=== PATIENT | female | born 1990 | race Asian ===

== ENCOUNTER 2018-05-02 16:35 | Emergency (ER) | payer OTHER ==
--- NOTE | 2018-05-02 16:51 | EDPHY ---
H & P Stated Complaint: RLQ pain Time Seen by Provider: 05/02/18 16:50 HPI/ROS: CHIEF COMPLAINT: Right lower quadrant abdominal pain HISTORY OF PRESENT ILLNESS: 27-year-old female via private vehicle , visiting from [place] arrived last evening, complaining of right lower quadrant abdominal pain since last evening described as a sharp, piercing pain. 3 weeks ago while in [place] she had emergency contraception and IUD placement at that time and has noticed mild, consistent right lower quadrant pain ever since. She has a history of IBS and possibly IBD. No nausea or vomiting. No urinary abnormality. No back or flank pain. No chest pain. No dyspnea. No peripheral edema. Last oral intake was at 4:00 p.m. Today REVIEW OF SYSTEMS: A ten point review of systems was performed and is negative with the exception of the items mentioned in the HPI PAST MEDICAL & SURGICAL HISTORY: IUD in place SOCIAL HISTORY:Nonsmoker. Single. PHYSICAL EXAM (Prior to examination, patient consented to physical exam, hands were washed and my usual and customary physical exam procedures followed) 1) GENERAL: Well-developed, well-nourished, alert and oriented. Appears to be in no acute distress. Observed ambulating with a stable steady gait appears to be in no acute discomfort 2) HEAD: Normocephalic, atraumatic 3) HEENT: Pupils equal, round, reactive to light bilaterally. Sclera anicteric. [Nasopharynx, oropharynx, clear, no lesions. And moist mucous membranes 4) NECK: Full range of motion, no meningeal signs. 5) LUNGS: Clear auscultation bilaterally, no wheezes, no rhonchi, no retractions. 6) HEART: Regular rate and rhythm, no murmur, no heave, no gallop. 7) ABDOMEN: No guarding, tender to palpation right lower quadrant, negative Vyas's, negative Rovsing's, negative peritoneal sign, 8) MUSCULOSKELETAL: Moving all extremities, no focal areas of tenderness, no obvious trauma. No peripheral edema or discoloration. 9) BACK: No CVA tenderness, no midline vertebral tenderness, no fluctuance, no step-off, no obvious trauma, no visual or palpable abnormality. 10) SKIN: No rash, no petechiae. 11) Psychiatric: Patient is oriented X 3, there is no agitation. DIFFERENTIAL DIAGNOSIS: My differential diagnosis includes, but is not limited to, acute appendicitis, acute cholecystitis, bowel obstruction, acute pancreatitis, ovarian torsion, ectopic , gastritis and urinary tract infection. The patient understands that this diagnosis is provisional and can never be 100% accurate. This is a partial list of diagnoses considered. These considerations are based on history, physical exam, past history and reassessment. - Personal History LMP (Females 10-55): IUD In Place Current Tetanus/Diphtheria Vaccine: Yes Current Tetanus Diphtheria and Acellular Pertussis (TDAP): Yes - Medical/Surgical History Hx Asthma: No Hx Chronic Respiratory Disease: No Hx Diabetes: No Hx Cardiac Disease: No Hx Renal Disease: No Hx Cirrhosis: No Hx Alcoholism: No Hx HIV/AIDS: No Hx Splenectomy or Spleen Trauma: No Other PMH: IBS, sleep disorder, - Social History Smoking Status: Never smoked Constitutional: Initial Vital Signs Temperature (C) 36.6 C 05/02/18 16:44 Heart Rate 81 05/02/18 16:44 Respiratory Rate 16 05/02/18 16:44 Blood Pressure 104/74 05/02/18 16:44 O2 Sat (%) 96 05/02/18 16:44 O2 Delivery Mode Room Air Allergies/Adverse Reactions: No Known Allergies Allergy (Unverified 05/02/18 16:40) Home Medications: Medication Instructions Recorded Accutane 05/02/18 Clonazepam 05/02/18 Trospium Chloride 05/02/18 Medical Decision Making - Diagnostics Imaging Results: Imaging Impressions Abdomen Ultrasound 05/02/18 17:09 Impression: 1. Appropriately-positioned intrauterine device. 2. There is a 1.3 cm right ovarian hemorrhagic follicle, and there is a 2.0 cm involuting left ovarian hemorrhagic follicular cyst. 3. There is no evidence of torsion or free fluid. LIMITED ABDOMINAL (APPENDICEAL) ULTRASOUND Technique: The right lower quadrant was evaluated with a high-resolution linear transducer, utilizing graded compression and color Doppler. Findings: The cecum is identified, and is air-filled. The appendix is not identified, however there is no rebound tenderness, point tenderness, free fluid , or right lower quadrant mesenteric adenitis. Impression: Nondiagnostic assessment of the appendix. If there is further clinical concern regarding the patient's right lower quadrant pain, contrast-enhanced CT imaging could be considered. Findings were discussed with Ana Maria Garibay PA-C at 18:33, on 05/02/2018. Pelvic/Renal Ultrasound 05/02/18 17:09 Impression: 1. Appropriately-positioned intrauterine device. 2. There is a 1.3 cm right ovarian hemorrhagic follicle, and there is a 2.0 cm involuting left ovarian hemorrhagic follicular cyst. 3. There is no evidence of torsion or free fluid. LIMITED ABDOMINAL (APPENDICEAL) ULTRASOUND Technique: The right lower quadrant was evaluated with a high-resolution linear transducer, utilizing graded compression and color Doppler. Findings: The cecum is identified, and is air-filled. The appendix is not identified, however there is no rebound tenderness, point tenderness, free fluid , or right lower quadrant mesenteric adenitis. Impression: Nondiagnostic assessment of the appendix. If there is further clinical concern regarding the patient's right lower quadrant pain, contrast-enhanced CT imaging could be considered. Findings were discussed with Ana Maria Garibay PA-C at 18:33, on 05/02/2018. Abdomen CT 05/02/18 18:45 Impression: 1. Normal appearance of the appendix. 2. Moderate constipation. 3. Appropriately-positioned intrauterine device. 4. There is a 2 cm involuting left ovarian hemorrhagic cyst (seen in greater detail on the earlier pelvic ultrasound). Findings were discussed with Ana Maria Garibay PA-C at 19:42, on 05/02/2018. Images reviewed by myself ED Course/Re-evaluation: 5:05 p.m.: Will obtain diagnostic studies including blood urine pelvic ultrasound and transabdominal ultrasound for evaluation of possible appendicitis. I saw this patient independently based on established practice protocols. Care of patient under supervision of secondary supervising physician Dr Ortiz . 6:44 p.m.: Re-evaluation discussed her imaging results showing a nonvisualized appendix. Patient still complaining of right lower quadrant pain. Expressed options including repeat evaluation [address] now. Given that the patient is visiting from [place] and I recommend CT imaging now. Indications risks benefits discussed she is agreeable. - Data Points Laboratory Results: Laboratory Results 05/02/18 17:13 05/02/18 17:13 05/02/18 05/02/18 05/02/18 17:13 17:13 17:13 WBC 11.96 10^3/uL H 10^3/uL (3.80-9.50) RBC 3.76 10^6/uL L 10^6/uL (4.18-5.33) Hgb 11.5 g/dL L g/dL (12.6-16.3) Hct 34.6 % L % (38.0-47.0) MCV 92.0 fL fL (81.5-99.8) MCH 30.6 pg pg (27.9-34.1) MCHC 33.2 g/dL g/dL (32.4-36.7) RDW 13.7 % % (11.5-15.2) Plt Count 294 10^3/uL 10^3/uL (150-400) MPV 10.0 fL fL (8.7-11.7) Neut % (Auto) 43.0 % % (39.3-74.2) Lymph % (Auto) 48.4 % H % (15.0-45.0) [place] % (Auto) 7.1 % % (4.5-13.0) Eos % (Auto) 1.0 % % (0.6-7.6) Baso % (Auto) 0.3 % % (0.3-1.7) Nucleat RBC Rel Count 0.0 % % (0.0-0.2) Absolute Neuts (auto) 5.14 10^3/uL 10^3/uL (1.70-6.50) Absolute Lymphs (auto) 5.79 10^3/uL H 10^3/uL (1.00-3.00) Absolute Monos (auto) 0.85 10^3/uL H 10^3/uL (0.30-0.80) Absolute Eos (auto) 0.12 10^3/uL 10^3/uL (0.03-0.40) Absolute Basos (auto) 0.04 10^3/uL 10^3/uL (0.02-0.10) Absolute Nucleated RBC 0.00 10^3/uL 10^3/uL (0-0.01) Immature Gran % 0.2 % % (0.0-1.1) Immature Gran # 0.02 10^3/uL 10^3/uL (0.00-0.10) RBC/WBC/PLT Morphology TNP Platelet Estimate TNP Sodium 137 mEq/L mEq/L (135-145) Potassium 3.9 mEq/L mEq/L (3.3-5.0) Chloride 108 mEq/L mEq/L (97-110) Carbon Dioxide 24 mEq/l mEq/l (22-31) Anion Gap 5 mEq/L L mEq/L (8-16) BUN 15 mg/dL mg/dL (7-23) Creatinine 0.5 mg/dL L mg/dL (0.6-1.0) Estimated GFR > 60 Glucose 85 mg/dL mg/dL (70-100) Calcium 9.3 mg/dL mg/dL (8.5-10.4) Beta HCG, Qual NEGATIVE Urine Color Urine Appearance Urine pH Ur Specific [place] Urine Protein Urine Ketones Urine Blood Urine Nitrate Urine Bilirubin Urine Urobilinogen Ur Leukocyte Esterase Urine RBC Urine WBC Ur Epithelial Cells Urine Glucose 05/02/18 16:45 WBC RBC Hgb Hct MCV MCH MCHC RDW Plt Count MPV Neut % (Auto) Lymph % (Auto) [place] % (Auto) Eos % (Auto) Baso % (Auto) Nucleat RBC Rel Count Absolute Neuts (auto) Absolute Lymphs (auto) Absolute Monos (auto) Absolute Eos (auto) Absolute Basos (auto) Absolute Nucleated RBC Immature Gran % Immature Gran # RBC/WBC/PLT Morphology Platelet Estimate Sodium Potassium Chloride Carbon Dioxide Anion Gap BUN Creatinine Estimated GFR Glucose Calcium Beta HCG, Qual Urine Color YELLOW Urine Appearance CLEAR Urine pH 7.0 (5.0-7.5) Ur Specific Mobile 1.024 (1.002-1.030) Urine Protein NEGATIVE (NEGATIVE) Urine Ketones NEGATIVE (NEGATIVE) Urine Blood NEGATIVE (NEGATIVE) Urine Nitrate NEGATIVE (NEGATIVE) Urine Bilirubin NEGATIVE (NEGATIVE) Urine Urobilinogen NEGATIVE EU EU (0.2-1.0) Ur Leukocyte Esterase NEGATIVE (NEGATIVE) Urine RBC 1-3 /hpf /hpf (0-3) Urine WBC 1-3 /hpf /hpf (0-3) Ur Epithelial Cells TRACE /lpf /lpf (NONE-1+) Urine Glucose NEGATIVE (NEGATIVE) Medications Given: Discontinued Medications Sodium Chloride (Ns) 1,000 mls @ 0 mls/hr IV ONCE ONE PRN Reason: Wide Open Stop: 05/02/18 17:15 Last Admin: 05/02/18 18:11 Dose: 1,000 mls Departure - Departure Disposition: Home, Routine, Self-Care Clinical Impression: Ovarian cyst Qualifiers: Laterality: bilateral Qualified Code(s): N83.201 - Unspecified ovarian cyst, right side Condition: Good Instructions: Ovarian Cyst (ED) Additional Instructions: Seek immediate medical attention if you develop new or worsening symptoms, if you develop fevers, chills, inability to tolerate oral intake or any other symptoms that concerns you. Adult Pain & Fever Control: We recommend Acetaminophen (Tylenol) and Ibuprofen (Motrin,Advil) for pain and fever control. When fever is high or pain severe, both drugs can be used at the same time, but at different intervals. Please note the time differences. Your dose is: Acetaminophen 650mg every 4 to 6 hours Ibuprofen 600mg every 6 hours with food OR Note: do not take Acetaminophen with Hydrocodone (Vicodin, Lortab) or Oycodone (Percocet). These medications also contain Acetaminophen. No more than 3000mg of Acetaminophen should be taken in 24 hours (for an adult). Referrals: Noemí Condon MD [Medical Doctor] - 2-3 days, call for appt. (You may also follow up with your general practitioner when you return to [place])
[2018-05-02] MEDS ORDERED: NS 1,000 ML IV ONE (17:14)
[2018-05-02 17:43] LABS: PLATELET COUNT 294 10^3/uL (150-400)
[2018-05-02] MEDS ORDERED: IOPAMIDOL (ISOVUE-300) 100 ML BTL ONE (18:47)
[2018-05-02 19:41] VITALS: BP 101/64
== END 2018-05-02 20:37 | disposition home or self-care (01) ==
DX: N83.201 Unspecified ovarian cyst, right side (principal)
CPT/HCPCS: Q9967

== ENCOUNTER 2018-05-05 10:21 | Emergency (ER) | payer OTHER ==
[2018-05-05] MEDS ORDERED: ONDANSETRON 4 MG/2 ML VIAL IVP ONE (11:15)
[2018-05-05] MEDS ORDERED: NS 1,000 ML IV ONE (11:22)
--- NOTE | 2018-05-05 11:22 | EDPHY ---
General - History Smoking Status: Never smoked Time Seen by Provider: 05/05/18 11:07 Narrative: CHIEF COMPLAINT: Pelvic pain HISTORY OF PRESENT ILLNESS: Patient presents with complaints of lower abdominal pelvic pain. This originally started in late March after having a ParaGard IUD placed. This was mild over the last couple weeks until Wednesday. She then reports increasing pain that was bilateral. Wednesday morning the pain was worsen but over the afternoon it improved. This morning she woke with increasingly severe pain, dizziness, nausea and 1 episode of vomiting. She has mild spotting but no bleeding or discomfort further. She has no back pain. No fever. No urinary complaints. She has been evaluated here earlier this week with ultrasounds of the abdomen and pelvis CT scan of the abdomen and pelvis. She was diagnosed with bilateral hemorrhagic cysts. She has been taking ibuprofen and Tylenol with no improvement. No other associated complaints or modifying factors. REVIEW OF SYSTEMS: Ten systems reviewed and are negative unless otherwise noted in the HPI PCP: Located in the [place] SPECIALISTS: None PAST MEDICAL HISTORY: Irritable bowel, sleep disorder. ParaGard IUD placed on April 14 PAST SURGICAL HISTORY: No recent surgeries SOCIAL HISTORY: Nonsmoker. Lives in the [facility]. Visiting since Wednesday and return home on Wednesday. FAMILY HISTORY: Noncontributory EXAMINATION General Appearance: Alert, no distress Head: normocephalic, atraumatic Eyes: Pupils equal and round, no conjunctival pallor or injection ENT, Mouth: Mucous membranes moist Neck: Normal inspection, supple, non-tender Respiratory: Lungs are clear to auscultation Cardiovascular: Regular rate and rhythm Gastrointestinal: Abdomen is soft and nondistended. There is tenderness in the lower quadrants. No guarding. No tympany. No rigidity. No CVA tenderness. No palpable mass. Back: non-tender, no bony abnormalities Neurological: A&O, nonfocal, normal gait Skin: Warm and dry, no rash Extremities: Nontender, no pedal edema Psychiatric: Mood and affect normal DIFFERENTIAL DIAGNOSES: Including but not limited to hemorrhagic cyst, ovarian torsion, pelvic cramps, IUD intolerance MDM: 11:20 a.m. Increasing lower abdominal pain and pelvic cramping with recent diagnosis of bilateral hemorrhagic cysts. She has also felt nauseated, lightheaded and dizzy. I will review her recent studies here. I have ordered laboratory studies, IV fluid and pain medication. 11:45 a.m. Patient re-evaluated. Her pain is improving slowly. She is in no acute distress. Case discussed with Dr. Davis. We will proceed with repeat pelvic ultrasound to rule out torsion and to evaluate for hemorrhagic cyst. 12:10 p.m. Pulp Operator is at bedside. Her CBC reveals a stable hemoglobin and a decrease in her leukocytosis. 1:24 p.m. Notified by radiologist Dr. Muhammad. We discussed the findings of the ultrasound. No evidence of torsion. There are ovarian cysts, but these are too small to be likely cause of her pain. Suspect IUD as her etiology. 1:30 p.m. Patient re-evaluated. She is feeling better but still has some pain. I do feel she warrants a gynecology evaluation in the emergency department she is scheduled to fly back to the this weekend. 1:40 p.m. Case discussed with gynecology, Dr. Byrd. He will come evaluate the patient in the emergency department shortly 3:00 p.m. Patient has been evaluated by Dr. Byrd in the emergency department. He performed a pelvic exam and removed the patient IUD. He reports that she is feeling much better. I have re-evaluated her and she says her pain is resolved. She would like to be discharged home. I will discharge her with short course of Naprosyn pain medication as she may have some cramping. We discussed follow up with her primary care physician upon return to the [facility]. We discussed ED precautions for fever, pain, vaginal bleeding or discharge. She is comfortable this plan and discharged home stable condition. SUPERVISION: Patient was independently examined, but I discussed the case with my secondary supervising physician Dr. Davis ([facility]) Medical Decision Making: I did not see this patient while she was in the emergency department. However her care was discussed with the PA while the patient was in the department. I agree with treatment plan and management (Bebeto Davis) - Objective Vital Signs: Initial Vital Signs Temperature (C) 36.8 C 05/05/18 10:34 Heart Rate 80 05/05/18 10:34 Respiratory Rate 18 05/05/18 10:34 Blood Pressure 101/62 05/05/18 10:34 O2 Sat (%) 97 05/05/18 10:34 O2 Delivery Mode Room Air Allergies/Adverse Reactions: No Known Allergies Allergy (Verified 05/05/18 10:33) Home Medications: Medication Instructions Recorded Accutane 05/02/18 Clonazepam 05/02/18 Trospium Chloride 05/02/18 Naproxen [Naprosyn] 500 mg PO BID #10 tablet 05/05/18 oxyCODONE HCL/ACETAMINOPHEN 1 each PO Q4-6PRN PRN #7 tablet 05/05/18 [Percocet 5-325 mg Tablet] Laboratory Results: Laboratory Results 05/05/18 10:53 05/05/18 10:53 05/05/18 11:24 C.trachomatis RNA (TMA) NEGATIVE (NEGATIVE) N.gonorrhoeae RNA (TMA) NEGATIVE (NEGATIVE) Medications Given: Discontinued Medications Sodium Chloride (Ns) 1,000 mls @ 0 mls/hr IV EDNOW ONE; Wide Open PRN Reason: Protocol Stop: 05/05/18 11:23 Last Admin: 05/05/18 11:28 Dose: 1,000 mls Morphine Sulfate (Morphine) 4 mg IVP EDNOW ONE Stop: 05/05/18 11:16 Last Admin: 05/05/18 11:20 Dose: 4 mg Ondansetron HCl (Zofran) 4 mg IVP EDNOW ONE Stop: 05/05/18 11:16 Last Admin: 05/05/18 11:20 Dose: 4 mg Departure - Departure Disposition: Home, Routine, Self-Care Clinical Impression: Dermoid cyst, Complex cyst of left ovary, Pelvic pain in female, Pain due to intrauterine contraceptive device (IUD) Condition: Good Instructions: Pelvic Pain in Women (ED) Additional Instructions: 1. Naprosyn as prescribed as needed. You may use [id number] Aleve, 2 pills by mouth twice daily instead of this but do not use both of these medications together 2. Pain medication as prescribed as needed 3. Contact your physician in the [place] for outpatient follow-up. You will need to discussed contraceptive methods for you. 4. Return to emergency department for worsening pain, vaginal bleeding, discharge, flank pain, fever Referrals: Charly Byrd MD [Medical Doctor] - As per Instructions Prescriptions: Naproxen [Naprosyn] 500 mg PO BID #10 tablet oxyCODONE HCL/ACETAMINOPHEN [Percocet 5-325 mg Tablet] 1 each PO Q4-6PRN PRN #7 tablet PRN Reason: Pain, Breakthrough
[2018-05-05 11:26] LABS: PLATELET COUNT 282 10^3/uL (150-400)
[2018-05-05 11:33] LABS: INR 1.03 (0.83-1.16); PROTIME(PATIENT) 13.7 SEC (12.0-15.0)
--- NOTE | 2018-05-05 14:05 | PDCONSULT ---
Nurse Research Note: Consulting Service: ER Reason for Consultation: Pelvic pain, acute on chronic History of Present Illness: 27 yo nulligravid female - from the [place], here for work for one week - has presented to the ER twice in the past 3 days for acute on chronic pelvic pain. She reports she's never had pain quite like this until she had this Paragard IUD placed in March of this year. She said insertion insertion was extremely painful and had days of pretty excruciating pain following insertion. She said that pain eventually down, but has come back intermittently. That pain has flared intermittently in the past 8 wks, but these episodes here this week have been much more painful. Described diffuse pelvic/abdominal pain that comes in waves, usually more R than L. No specific bowel or bladder association. Had CT scan on the and now an US today as her pain had increased/changed in the interim. US as below shows 1cm right dermoid, 2cm left hemorrhagic cyst, no free fluid, and IUD in correct position. Objective: Exam: Appears well, Abd soft, non-tender, non-distended. NOT acute. VS: WNL and stable. US shows IUD in correct location within the uterus, otherwise normal uterus. Normal ovaries bilaterally. A/P: 27 yo w acute pelvic pain. Discussed possible etiologies and IUD is still possible despite normal position on US. Offered observation vs removing IUD here in the ER, etc. Pt elected to have IUD removed. Speculum placed. Strings clearly visible. GC/C collected. IUD strings grasped and device removed without issue. Intact, did not seem embedded. Pt doing well after, and dcd per ER provider.
[2018-05-05 15:23] VITALS: BP 105/76
[2018-05-06 12:16] LABS: GC AMPLIFICATION GENPROBE NEGATIVE (NEGATIVE)
== END 2018-05-05 15:21 | disposition home or self-care (01) ==
DX: T83.84XA Pain due to genitourinary prosthetic devices, implants and grafts, initial encounter (principal); D27.1 Benign neoplasm of left ovary; E86.9 Volume depletion, unspecified; Y73.2 Prosthetic and other implants, materials and accessory gastroenterology and urology devices associated with adverse incidents
CPT/HCPCS: 96374; J2270; J2405